=== PATIENT | male | born 1980 | race Caucasian/White ===

== ENCOUNTER 2024-04-10 09:46 | Emergency (ER) | payer OTHER, SELFPAY ==
[2024-04-10 09:54] VITALS: BP 131/83
[2024-04-10 10:57] LABS: % Basophils 0.9 % (0-2); % Immature Granulocytes 0.4 % (0-0.5); % Lymphocytes 25.1 % (20.5-51.1); % Monocytes 8.7 % (1.7-9.3); % Neutrophils 58.9 % (42.2-75.2); Absolute Basophils 0.1 10^3/uL (0-0.2); Absolute Eosinophils 0.3 10^3/uL (0-0.7); Absolute Lymphocytes 1.4 10^3/uL (1.2-3.4); Absolute Monocytes 0.5 10^3/uL (0.1-0.6); Absolute Neutrophils 3.3 10^3/uL (1.4-6.5); Hematocrit 44.9 % (39.0-52.0); Hemoglobin 15.2 g/dL (13.0-18.0); Mean Corp Hgb Conc. 33.9 g/dL (33.0-37.0); Mean Corpuscular Hgb 30.9 pg (27.0-31.0); Mean Corpuscular Volume 91.3 fL (80.0-94.0); Mean Platelet Volume 9.2 fL (7.4-10.4); Nucleated Red Blood Cells % 0 % (-); Platelet Count 232 10^3/uL (130-400); Red Blood Cell Count 4.92 10^6/uL (4.70-6.10); Red Cell Dist. Width 13.7 % (11.5-14.5); White Blood Cell Count 5.6 10^3/uL (4.8-10.8)
[2024-04-10 11:08] LABS: ALT (SGPT) 21 U/L (0-50); AST (SGOT) 26 U/L (17-59); Albumin 4.9 g/dl (3.5-5.0); Alkaline Phosphatase 60 U/L (38-126); Blood Urea Nitrogen 17 mg/dl (9-20); Calcium 9.8 mg/dl (8.4-10.2); Carbon Dioxide 28 mmol/L (22-30); Chloride 103 mmol/L (98-107); Glucose 95 mg/dl (70-99); Sodium 141 mmol/L (135-145); Total Bilirubin 1.3 mg/dl (0.2-1.3); Total Protein 7.6 g/dl (6.3-8.2); eGFR > 60.00
[2024-04-10 11:20] LABS: Troponin I < 0.012 ng/ml
--- NOTE | 2024-04-10 11:37 | ED.GENMED ---
History of Present Illness
General
Chief Complaint: Chest Pain
Source: patient
Exam Limitations: none
Time Seen by Provider: 04/10/24 10:49
Nursing documentation reviewed up to this point in time: agreed with
History of Present Illness
History of Present Illness:
44-year-old male presents with chest pain sharp left anterior chest, onset few days ago, lasted a minute or so, no nausea vomiting or diaphoresis, pain returned today fairly intense, lasted minutes or less, does not go to the back nor jaw, patient
exercises regularly does not get any pain, no fevers does have a Schatzki's ring, states this is different than his reflux, he has an uncle who from an [place] both his parents are alive, with no CAD no calf pain no recent travel
Past History
Past History
ED Past Medical History: Other (Kidney stones) and Other (Schatzki's ring)
ED Past Surgical History: None and Urological
Social History
Tobacco: Non-smoker
Alcohol: Occasional
Drug: None
Personal:
Living: with family
Employment: Employed
Family History
Family History: CAD and Other (Kidney stones); Negative Sudden
Review of Systems
Review of Systems
All Other Systems: ROS reviewed and negative except as documented in HPI and ROS
Constitutional: Denies fever
Respiratory: Denies cough or trouble breathing
Cardiac: Reports chest pain; Denies diaphoresis, palpitations or syncope
ABD/GI: Reports no symptoms; Denies abdominal pain
: Reports no symptoms
Musculoskeletal: Reports no symptoms
Skin: Reports no symptoms
Neurological: Reports no symptoms
Hematologic/Lymphatic: Reports no symptoms
Psychiatric: Reports no symptoms
Phy Exam
Physical Exam
Physical Exam:
Physical Exam
General: no apparent distress, not acutely ill
Neck: No jaundice
Heart: s1/s2 regular rate and rhythm, no murmur. equal radial pulses.
Lungs: no acute respiratory distress. clear bilaterally
Abdomen: Nontender
Neuro: alert and oriented. no focal neurological deficits
Skin: no rash
Psychiatric: well kept. interactive and cooperative
Extremities: no edema. no calf tenderness.
Scores
Heart Score for Chest Pain Patients
STEMI patient?: No
History: Slightly or Non-Suspicious
ECG: Normal
Age: >45 - <65 years
Risk Factors: 1 or 2 Risk Factors
Troponin: </= Normal Limit
Heart Score for Chest Pain Patients: 2
Heart Score Risk: 2.5% MACE over next 6 weeks
Course
Orders/Labs/Results
Orders:
Orders
04/10/24 09:49
EKG [Electrocardiogram (*1)] Urgent
Reason for Study: Chest Pain
EKG- Treatment ONCE
04/10/24 10:48
Complete Blood Count/With Diff Urgent
Comprehensive Metabolic Panel Urgent
Magnesium Urgent
Troponin I Urgent
04/10/24 11:13
Add On- LAB Urgent
Tests Added?: lipase
04/10/24 11:14
CR Chest - 2 Views Urgent
Comment:
Reason For Exam: cp
04/10/24 11:23
Add On- LAB Urgent
Tests Added?: magnesium
04/10/24 11:24
0.9% Sodium Chloride 1000 ml [Nss] 1,000 ml IV BOLUS
Ketorolac [Toradol] 30 mg IV NOW STA
04/10/24 10:48
04/10/24 10:48
Vital Signs
Initial and Last Documented VS:
Initial Vital Signs
Temp Pulse Resp BP Pulse Ox
98.7 F 63 16 131/83 100
04/10/24 09:54 04/10/24 09:54 04/10/24 09:54 04/10/24 09:54 04/10/24 09:54
Last Documented Vital Signs
Temp Pulse Resp BP Pulse Ox
98.7 F 63 16 116/86 100
04/10/24 09:54 04/10/24 09:54 04/10/24 09:54 04/10/24 11:40 04/10/24 09:54
MDM/Problems Addressed
Differential Diagnosis Includes:
Muscle strain pneumothorax doubt PE, ACS conceivable, does have nonischemic EKG nondetectable troponin
MDM/Problems Addressed:
Chest pain
Chronic conditions affecting care:
GERD
Acute Exacerbation and/or Progression of Chronic Illness:
GERD
*Radiology
Radiology exam reviewed: preliminary read by ED provider
*Pulse Oximetry
Patient hypoxic: no
*EKG
Interpreted by ED Provider?: Yes
Interpretation: normal
Comparison EKG: no comparison EKG present
Heart Rate: 70
Rate: normal
Rhythm: sinus
Ischemia: no ischemia
*Stitch Bonding Machine Drawer In Interpretation
Rate: normal
Interpretation: normal
Heart Rate: 70
Rhythm: sinus
*Critical Care Note
Total Time (30-74mins, 75-104mins- exclusive of procedures): Not Applicable
Update Note
Update Note:
Symptoms appear atypical for ACS, has a normal EKG nonischemic
Update troponin undetectable, EKG noted, chest x-ray noted
ED Attending Note
-
Portions of this chart may have been created with voice recognition software.� Occasional wrong word or��sound alike� substitutions may have occurred due to the inherent limitations of voice recognition software.
Discharge Plan
Departure
Patient Disposition: Home (Routine Discharge)
Date of Disposition: 04/10/24
Time of Disposition: 12:20
Patient with high blood pressure during this ER visit?: No
Condition: Good
Discharge Problem:
Chest pain
Instructions: Chest Pain PCP Follow Up
Prescriptions:
No Action
acetaminophen 325 MG tablet
650 mg PO Q4HPRN PRN (Reason: mild pain or temp >/= 100) 0RF
phenazopyridine 200 MG tablet
200 mg PO TIDPRN PRN (Reason: burning with urination) Qty: 15 0RF
solifenacin 5 MG tablet
10 mg PO DAILY Qty: 10 0RF
dexamethasone sodium phos (PF) 10 MG/ML solution
10 mg PO DAILY Qty: 3 0RF
Rx Instructions:
10 mg daily starting 01/27/22 for 3 days
Referrals:
Marcus Mcelroy DO [Family Provider] - Next open appointment
Tomás Ackerman MD [Active] - Next open appointment
Interventions
Interventions:
*Risk Screen - Suicide Last Done: 04/10/24 09:54
*General Assessment Last Done: 04/10/24 09:54
*Neglect/Abuse Screening Last Done: 04/10/24 09:54
Discharge Date and Time
Print Language: KOREAN
[2024-04-10] MEDS: NSS 1000 IV (11:38)
[2024-04-10] MEDS: TORADOL 30 MG IV (11:38)
[2024-04-10 11:40] VITALS: BP 116/86
[2024-04-10 12:34] VITALS: BP 121/79
== END 2024-04-10 12:46 | disposition home or self-care (01) ==
LOC: EMR 09:46
PROVIDERS: EMERGENCY PHYSICIAN Emergency Medicine; FAMILY PHYSICIAN Internal Medicine
DX: R07.89 Other chest pain (principal); K22.2 Esophageal obstruction; Z87.442 Personal history of urinary calculi
CPT/HCPCS: 99284; 96374; 71046; 80053; 83735; 84484; 85025; 93005

== ENCOUNTER → 2024-06-15 06:28 | Day surgery (SDC) | payer OTHER, SELFPAY | LOC: GI 06:28 | PROVIDERS: ATTENDING PHYSICIAN Internal Medicine Gastroenterology | DX: Z12.11 Encounter for screening for malignant neoplasm of colon (principal); Z83.719 Family history of colon polyps, unspecified; K64.8 Other hemorrhoids | CPT/HCPCS: G0105 ==